=== PATIENT | female | born 1995 | race African-American/Black ===

== ENCOUNTER 2018-10-28 17:51 | Emergency (ER) ==
--- OUTSIDE RECORDS SUMMARY | 2018-10-28 17:55 | XMS REPORT | Summary of Care ---
Author Author JOSE DANIEL PENN M.D. Organization Unknown Address Unknown Phone Unavailable Care Team Providers Care General Studies Program Chair Name Role Phone JOSE DANIEL PENN M.D. Unavailable Unavailable Bijal Murillo M.A. Unavailable Unavailable SILVIA RUSH MD Unavailable Unavailable Unavailable Unavailable Functional Status Name Dates Details Functional status health issues are not documented Status: Name Dates Details Cognitive status health issues are not documented Status: Problems Name Dates Details Hyperthyroidism (242.90, E05.90) Status: Active Nodular goiter (241.9, E04.9) Status: Active Medications Name Dates Details MethIMAzole 10 MG Oral Tablet TAKE 1 TABLET ONCE DAILY. Quantity: 90 JOSE DANIEL PENN M.D. * Start : 12-Jul-2017 Active Propranolol HCl - 10 MG Oral Tablet TAKE 1 TABLET TWICE DAILY. * Quantity: 180 Refills: 1 JOSE DANIEL PENN M.D. 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) Status: Resolved History of High blood pressure (401.9, I10) Status: Resolved Procedures Procedure Dates Details [QLH] TSH, 3RD GENERATION Date: 18-Oct-2017 [QLH] T4, FREE Date: 18-Oct-2017 [QLH] T3, TOTAL Date: 18-Oct-2017 [QLH] CMP W/EGFR Date: 18-Oct-2017 [QLH] CBC (INCLUDES DIFF/PLT) Date: 18-Oct-2017 [QLH] TSH, 3RD GENERATION Date: 06-Dec-2017 [QLH] T4, FREE Date: 06-Dec-2017 [QLH] T3, TOTAL Date: 06-Dec-2017 [QLH] CMP W/EGFR Date: 06-Dec-2017 [QLH] CBC (INCLUDES DIFF/PLT) Date: 06-Dec-2017 Immunization Name Dates Details Immunizations not documented Family History Name Dates Details Family history of thyroid disease (V18.19, Z83.49) Status: Active Social History Name Dates Details - Status: Name Dates Details Never smoker Vital Signs Date Test Result Details No Known Vitals to report Results Date Description Value Details Results not documented Plan of Care Name Dates Details Planned Observations Planned Goals not documented Planned Encounters Appointment; JOSE DANIEL PENN M.D. On: 18-Apr-2018 10:00 Interventions Provided Labs/Procedures/Imaging* [QLH] CBC (INCLUDES DIFF/PLT); To Be Done: 06 Dec 2017 * [QLH] CMP W/EGFR; To Be Done: 06 Dec 2017 * [QLH] T3, TOTAL; To Be Done: 06 Dec 2017 * [QLH] T4, FREE; To Be Done: 06 Dec 2017 * [QLH] TSH, 3RD GENERATION; To Be Done: 06 Dec 2017 Instructions Name Dates Details Instructions not documented Encounters Appointment; JOSE DANIEL PENN M.D. Encounter Diagnosis: Problem not documented On: 12-Jul-2017 11:40 Appointment; JOSE DANIEL PENN M.D. Encounter Diagnosis: Problem not documented On: 18-Oct-2017 9:20
--- OUTSIDE RECORDS SUMMARY | 2018-10-28 17:55 | XMS REPORT | Clinical Summary ---
Author Author [facility] Address Unknown Phone Unavailable Care Team Providers Care Computer Peripheral Equipment Operator Name Role Phone Asked, No Pcp PCP Unavailable Allergies Comments Active Allergy Reactions Severity Noted Date Amoxicillin 09/22/2016 Penicillins 09/22/2016 Medications End Date Status Medication Sig Dispensed Refills Start Date Active iron,carbon,mevq-CH-S79-C Take 2 0 -dss (FERRALET 90 tablets by 8 DUAL-IRON DELIVERY) mouth. 90-1-12-50 nn-ad-evp-mg tablet 07/13/2018 sulfamethoxazole-trimetho Take 1 tablet 10 tablet 0 prim (BACTRIM DS) 800-160 by mouth 2 9 mg per tablet (two) times a day for 5 days. smx-tmp DS (BACTRIM) 800-160 mg tabs (1tab q12 D10) Active Problems Not on file Encounters Care Team Description Date Type Specialty Gagan Krause MD Acute cystitis without hematuria (Primary Dx); Possible exposure to STD 07/08/2018 Emergency Emergency Medicine after 10/27/2017 Social History Date Tobacco Use Types Packs/Day Years Used Never Smoker Smokeless Tobacco: Never Used Alcohol Use Drinks/Week oz/Week Comments Yes social Sex Assigned at Date Recorded Not on file Industry Job Start Date Occupation Not on file Not on file Not on file Travel End Travel History Travel Start No recent travel history available. Last Filed Vital Signs Time Taken Vital Sign Reading 07/08/2018 2:52 AM BOX ATTACHER Blood Pressure 117/66 07/08/2018 2:52 AM BOX ATTACHER Pulse 75 07/08/2018 2:52 AM BOX ATTACHER Temperature 36.8 C (98.2 F) 07/08/2018 2:52 AM BOX ATTACHER Respiratory Rate 18 07/08/2018 2:52 AM BOX ATTACHER Oxygen Saturation 98% - Inhaled Oxygen - Concentration 07/08/2018 2:05 AM BOX ATTACHER Weight 111 kg (245 lb) 07/08/2018 2:05 AM BOX ATTACHER Height 182.9 cm (6') 07/08/2018 2:05 AM BOX ATTACHER Body Mass Index 33.23 Plan of Treatment Health Maintenance Due Date Last Done Comments CHLAMYDIA SCREENING 04/10/2018 04/10/2017 INFLUENZA VACCINE 12/19/2018 Procedures Comments Procedure Name Priority Date/Time Associated Diagnosis URINALYSIS STAT 07/08/2018 2:30 AM BOX ATTACHER HCG QUALITATIVE, URINE STAT 07/08/2018 SCREEN 2:30 AM BOX ATTACHER after 10/27/2017 Results * Urinalysis (07/08/2018 2:30 AM BOX ATTACHER) Glucose, UA Negative Negative [facility] Bilirubin, UA Negative Negative [facility] Ketones, UA Negative Negative [facility] Specific =>1.030 1.001 - 1.035 [place] gravity, UA [facility] Blood, UA Trace (A) Negative [facility] pH, UA 6.0 5.0 - 8.5 [facility] Protein, UA 1+ (A) Negative [facility] Urobilinogen, <2.0 <2.0 [facility] Nitrite, UA Negative Negative [facility] Leukocyte Trace (A) Negative [place] esterase, UA [facility] Color, UA Yellow [facility] Appearance, UA Cloudy [facility] Specimen Urine Performing Organization Address City/State/[place] [address] PATHOLOGY AND GENOMIC MEDICINE, [address] * hCG qualitative, urine screen (07/08/2018 2:30 AM BOX ATTACHER) hCG Negative [place] fay, Comment: [place] urine Sensitivity of HCG test: 25 [place] mIU/mL [facility] Negative test results in CENTER patients suspected to be should be retested with a sample obtained 48-72 hours later, or by performing a quantitative assay. Specimen Urine Performing Organization Address City/State/[place] [phone] [place] [address] PATHOLOGY AND GENOMIC MEDICINE, [facility] MARCUS HAWK [address] [place] [address] [facility] after 10/27/2017 Insurance Type Payer Benefit Subscriber ID Effective Phone Address Plan / Dates Group Medicaid MEDICAID MEDICAID xxxxxxxxx 2018- Present Advance Directives Patient has advance care planning documents on file. For more information, kp allen contact: Marcus Hawk [address] [place] [address]
--- OUTSIDE RECORDS SUMMARY | 2018-10-28 17:55 | XMS REPORT | Summary of Care ---
Author Author Chidi Gayle, Bijal [facility] Unknown Address Unknown Phone Unavailable Care Team Providers Care Productivity Engineer Name Role Phone JOSE DANIEL PENN M.D. Unavailable Unavailable ADRI WRIGHT, SILVIA Unavailable Unavailable Unavailable Unavailable Functional Status Name Dates Details Functional status health issues are not documented Status: Name Dates Details Cognitive status health issues are not documented Status: Problems Name Dates Details Hyperthyroidism (242.90, E05.90) Status: Active Nodular goiter (241.9, E04.9) Status: Active Medications Name Dates Details MethIMAzole 10 MG Oral Tablet TAKE 1 TABLET 3 TIMES DAILY. * Start : 12-Jul-2017 Active Propranolol HCl - 10 MG Oral Tablet TAKE 1 TABLET 3 TIMES DAILY. * Refills: 0 * Start : 12-Jul-2017 Active Iron TABS [...] 18-Oct-2017 [QLH] CBC (INCLUDES DIFF/PLT) Date: 18-Oct-2017 Immunization Name Dates Details Immunizations not documented Family History Name Dates Details Family history of thyroid disease (V18.19, Z83.49) Status: Active Social History Name Dates Details - Status: Name Dates Details Never smoker Vital Signs Date Test Result Details [id number] BP Systolic 130 mm[Hg] Status: Comments: Location: LUE; Position: Sitting BP Diastolic 79 mm[Hg] Status: Comments: Location: LUE; Position: Sitting Height 72 in Status: Weight 252.25 lb Status: Body Mass Index Calculated 34.21 kg/m2 Status: Body Surface Area Calculated 2.35 m2 Status: Temperature 98.5 f Status: Comments: Method: Oral Heart Rate 71 /min Status: Comments: Location: L Brachial Artery; Quality: Normal Results Date Description Value Details Results not documented Plan of Care Name Dates Details Planned Observations Planned Goals not documented Interventions Provided Labs/Procedures/Imaging* [QLH] CBC (INCLUDES DIFF/PLT); To Be Done: 18 Oct 2017 * [QLH] CMP W/EGFR; To Be Done: 18 Oct 2017 * [QLH] T3, TOTAL; To Be Done: 18 Oct 2017 * [QLH] T4, FREE; To Be Done: 18 Oct 2017 * [QLH] TSH, 3RD GENERATION; To Be Done: 18 Oct 2017 Discussion/Summary* Clinical findings, labs, assessment, and plan discussed with patient. He/she understands and agrees with plan outlined below. * 1. Hx of hyperthyroidism (dx thyroiditis vs. graves vs toxic nodular goiter) treated with MMI x 1 year; now off medication x 1-2 months; asxs at this visit * 2. Repeat TSH, free T4, total T3, add antibodies including TSI and TPO; CMP and CBC ordered * 3. Obtain a thyroid uptake/scan for further evaluation for differential above * 4. Holding MMI and propranolol until above results available * 5. Allscripts notes, chart notes, labs reviewed * Counseling: * 1. Reviewed graves disease and management * 2. Discussed compliance and proper use of medication * 3. Reviewed side effects of medication * 4. Discussed counseling * RTC in 3 months * I spent 60 minutes on this patient and greater than 50% of this time was spent on counseling and/or coordination of care. Instructions Name Dates Details Instructions not documented Encounters Appointment; JOSE DANIEL PENN M.D. Encounter Diagnosis: Problem not documented On: 12-Jul-2017 11:40 Appointment; JOSE DANIEL PENN M.D. Encounter Diagnosis: Problem not documented On: 18-Oct-2017 9:20
--- OUTSIDE RECORDS SUMMARY | 2018-10-28 17:55 | XMS REPORT ---
Author Author [facility] Address Unknown Phone Unavailable Care Team Providers Care Wildlife Protector Name Role Phone NORMAN CROWE Unavailable Unavailable Problems This patient has no known problems. Allergies, Adverse Reactions, Alerts This patient has no known allergies or adverse reactions. Medications This patient has no known medications. Encounters Start Date/Time End Date/Time Encounter Type Admission Type Attending Clinicians Care Facility Care Department Encounter ID 2018-03-22 21:16:00 2018-03-22 21:16:00 Emergency E [id number] Results Test Description Test Time Test Comments Text Results Atomic Results Result Comments CT, CHEST, WITH IV CONTRAST- PE TEST DESIGN 2017-10-21 22:32:00 Reason for exam:- >CHEST PAINIs the patient ?->UnknownWhat is the patient's sedation requirement?->No Sedation FINAL REPORT CT, CHEST, WITH IV CONTRAST- PE TEST DESIGN INDICATION: "Chest pain, acute, PE suspected, high pretest probCHEST PAIN" COMPARISON: None TECHNIQUE: Contrast enhanced CT examination of the chest in the pulmonary arterial phase from the bases to the apices. Orthogonal reformatted images as well as coronal maximum intensity projection images were obtained. DOSE REDUCTION: Dose modulation, iterative reconstruction, and/or weight-based adjustment of the mA/kV was utilized to reduce the radiation dose to as low as reasonably achievable. FINDINGS: Slightly limited exam due to contrast bolus timing and streak artifact from contrast in the SVC.No large central pulmonary embolism.No cardiomegaly.No pathologic adenopathy in the chest per CT size criteria. Lungs are grossly clear. Visualized portion of the upper abdomen shows no acute abnormality. No acute osseous abnormality. IMPRESSION:Slightly limited exam.No large central pulmonary embolism.Clear lungs. Signed: Talib Andrews MDReport Verified Date/Time: 10/21/2017 22:32:22 Reading Location: [facility] C0[facility] CT Body Reading Room C METABOLIC PANEL 2017-10-21 21:44:00 SODIUM (BEAKER) (test ycrs=348) 140 meq/L 135-148 POTASSIUM (BEAKER) (test ahmv=270) 3.7 meq/L 3.6-5.5 CHLORIDE (BEAKER) (test ucnu=176) 104 meq/L 98-106 CO2 (BEAKER) (test ypgf=805) 27 meq/L 24-32 BLOOD UREA NITROGEN (BEAKER) (test ksop=018) 8 mg/dL 10-26 CREATININE (BEAKER) (test waqg=677) 0.51 mg/dL 0.50-1.20 GLUCOSE RANDOM (BEAKER) (test mogx=493) 107 mg/dL 70-110 CALCIUM (BEAKER) (test esjv=851) 8.4 mg/dL 8.5-10.5 EGFR (BEAKER) (test xzud=8013) mL/min/1.73 sq m INSUFFICIENT CLINICAL DATA TO CALCULATE ESTIMATED GFR. SCREEN, [id number] 21:42:00* Test Item Value Reference Range Comments TEST URINE (BEAKER) (test ogss=491) Negative CBC W/PLT COUNT & AUTO [id number] 21:36:00* Test Item Value Reference Range Comments WHITE BLOOD CELL COUNT (BEAKER) (test wgss=514) 6.5 K/ L 4.0-10.0 RED BLOOD CELL COUNT (BEAKER) (test fzwl=993) 4.91 M/ L 4.00-5.00 HEMOGLOBIN (BEAKER) (test nngp=873) 11.1 GM/DL 12.0-15.0 HEMATOCRIT (BEAKER) (test iyyh=250) 36.4 % 36.0-45.0 MEAN CORPUSCULAR VOLUME (BEAKER) (test iijc=245) 74.1 fL 82.0-99.0 MEAN CORPUSCULAR HEMOGLOBIN (BEAKER) (test dhmy=542) 22.6 pg 27.0-33.0 MEAN CORPUSCULAR HEMOGLOBIN CONC (BEAKER) (test oglk=380) 30.5 GM/DL 32.0-36.0 RED CELL DISTRIBUTION WIDTH (BEAKER) (test knbi=987) 13.5 % 12.0-15.0 PLATELET COUNT (BEAKER) (test aqeo=273) 234 K/CU MM 150-430 MEAN PLATELET VOLUME (BEAKER) (test eypb=244) 9.2 fL 6.5-11.5 NEUTROPHILS RELATIVE PERCENT (BEAKER) (test ckst=869) 55 % LYMPHOCYTES RELATIVE PERCENT (BEAKER) (test jsqn=016) 28 % MONOCYTES RELATIVE PERCENT (BEAKER) (test ppzb=522) 16 % EOSINOPHILS RELATIVE PERCENT (BEAKER) (test pfsi=470) 1 % BASOPHILS RELATIVE PERCENT (BEAKER) (test rznn=007) 0 % NEUTROPHILS ABSOLUTE COUNT (BEAKER) (test boff=580) 3.57 K/ L 1.80-8.00 LYMPHOCYTES ABSOLUTE COUNT (BEAKER) (test hywi=891) 1.81 K/ L 1.48-4.50 MONOCYTES ABSOLUTE COUNT (BEAKER) (test bjst=467) 1.02 K/ L 0.00-1.30 EOSINOPHILS ABSOLUTE COUNT (BEAKER) (test yyfz=212) 0.05 K/ L 0.00-0.50 BASOPHILS ABSOLUTE COUNT (BEAKER) (test caot=548) 0.01 K/ L 0.00-0.20
--- OUTSIDE RECORDS SUMMARY | 2018-10-28 17:55 | XMS REPORT ---
Author Author Admin, [place] Organization [facility] Address [address] [address] Phone Allergies, Adverse Reactions, Alerts Allergy Name Reaction Description Start Date Severity Status Provider Allergies Unknown Conditions or Problems Problem Name Problem Code Onset Date Status Entry Date Provider Comment Standard Description Annotate Problems Unknown Medication List Medication Instructions Start Date Stop Date Generic Name NDC Status Provider Patient Instruction Drug Treatment Unknown - unknown
--- OUTSIDE RECORDS SUMMARY | 2018-10-28 17:55 | XMS REPORT | Clinical Summary ---
Author Author MINI [facility] Address Unknown Phone Unavailable Care Team Providers Care Dental Amalgam Processor Name Role Phone Pcp, No PCP Unavailable Allergies Comments Active Allergy Reactions Severity Noted Date Amoxicillin 10/21/2017 Penicillins 10/21/2017 Medications End Date Status Medication Sig Dispensed Refills Start Date Active propranolol (INDERAL) 10 Take 10 mg by 0 MG tablet mouth 3 (three) times daily. Active methIMAzole (TAPAZOLE) 10 Take 10 mg by 0 MG tablet mouth 3 (three) times daily. Active ferrous sulfate 220 mg Take 220 mg 0 (44 mg iron)/5 mL by mouth solution daily. Active Problems Not on file Social History Date Tobacco Use Types Packs/Day Years Used Never Smoker Smokeless Tobacco: Never Used Alcohol Use Drinks/Week oz/Week Comments Yes 25 Shots of 15.0 liquor Sex Assigned at Date Recorded Not on file Industry Job Start Date Occupation Not on file Not on file Not on file Travel End Travel History Travel Start No recent travel history available. Last Filed Vital Signs Not on file Plan of Treatment Not on file Results Not on fileafter 10/27/2017 Insurance Payer Benefit Subscriber ID Type Phone Address Plan / Group CIG[employer] - [place] CARE CIGNA xxxxxxxxx HMO/POS HMO/POS/OP EN ACCESS MEDICAID - MEDICAID [place] MEDICAID xxxxxxxxx Medicaid CARE [facility] Contracted
== END 2018-10-28 18:06 | disposition short-term general hospital (02) ==
LOC: ER 17:51
DX: Z53.21 Procedure and treatment not carried out due to patient leaving prior to being seen by health care provider (principal)